=== PATIENT | female | born 1980 | race Asian ===

== ENCOUNTER 2017-07-18 15:11 | Emergency (ER) | payer OTHER ==
[~2017-07-18] VITALS: Ht 160 cm; Wt 71.3 kg
[2017-07-18 17:30] LABS: BASOPHIL (%) 0.1 % (0-1); EOSINOPHIL (%) 0.4 % (0-5); HEMATOCRIT 35.8 % (36.0-46.0); HEMOGLOBIN 12.4 G/DL (11.9-15.5); IMMATURE GRANULOCYTE (%) 0.7 % (0.0-0.7); LYMPHOCYTE (%) 20.7 % (15-42); LYMPHOCYTE COUNT 1.6 K/uL (1.0-2.8); MCH 34.3 PG (29.0-34.0); MCHC 34.6 G/DL (30.0-36.0); MCV 98.9 FL (83-99); MONOCYTE (%) 5.4 % (3-12); MONOCYTE COUNT 0.4 K/uL (0-0.8); NEUTROPHIL (%) 72.7 % (45-76); NEUTROPHIL COUNT 5.5 K/uL (1.8-6.4); PLATELET COUNT 194 K/uL (156-360); RBC DIS.WIDTH-SD 46.4 % (39-53); RED BLOOD COUNT 3.62 M/uL (3.80-5.20); WHITE BLOOD COUNT 7.5 K/uL (4.1-10.2)
[2017-07-18 17:33] VITALS: BP 112/75
[2017-07-18 17:40] LABS: ALBUMIN 3.4 g/dL (3.2-4.8); CHLORIDE 109 mEq/L (99-109); POTASSIUM 3.3 mEq/L (3.7-5.4); SODIUM 138 mEq/L (136-147)
[2017-07-18 17:43] LABS: GLUCOSE 122 mg/dL (70-99); TOTAL PROTEIN 6.3 g/dL (6.4-8.3)
[2017-07-18 17:44] LABS: TOTAL BILIRUBIN 0.5 mg/dL (0.0-1.0)
[2017-07-18 17:46] LABS: ALKALINE PHOSPHATASE 166 IU/L (3-129); CREATININE 0.6 mg/dL (0.6-1.3); GFR ESTIMATE (CALCULATED) > 59 mL/min/; PHOSPHORUS 3.1 mg/dL (2.5-4.9)
[2017-07-18 17:47] LABS: UREA NITROGEN (BUN) 8 mg/dL (9-23)
[2017-07-18 17:48] LABS: AST (GOT) 16 IU/L (2-34); DIRECT BILIRUBIN 0.2 mg/dL (0.0-0.3)
[2017-07-18 17:49] LABS: ALT (GPT) 7 IU/L (3-49)
[2017-07-19 12:51] LABS: HEPATITIS B SURFACE ANTIGEN Nonreactive
[2017-07-19 12:52] LABS: HEPATITIS C ANTIBODY Nonreactive
[2017-07-19 12:53] LABS: ANTI-HEPATITIS B CORE (TOTAL) Nonreactive; HIV-1/2 AB/AG COMBO Nonreactive
[2017-07-19 12:54] LABS: HEPATITIS B SURFACE ANTIBODY REACTIVE
== END 2017-07-18 17:35 | disposition home or self-care (01) ==
LOC: EME 15:11
PROVIDERS: Nurse Practitioner Family
DX: S61.233A Puncture wound without foreign body of left middle finger without damage to nail, initial encounter (principal); Y99.0 Civilian activity done for income or pay; Z33.1 Pregnant state, incidental; Z3A.37 37 weeks gestation of pregnancy
CPT/HCPCS: 80069; 80076; 85025; 86703; 86704; 86706; 86803; 87340; 99281; 99283